=== PATIENT | female | born 1965 | race Caucasian/White ===

== ENCOUNTER 2019-10-22 08:56 | Observation (INO) ==
[2019-10-22] MEDS ORDERED: ONDANSETRON 4 MG/2 ML VIAL IV PRN (13:36)
[2019-10-22] MEDS ORDERED: ACETAMINOPHEN 325 MG TABLET PO PRN (13:36)
[2019-10-22] MEDS ORDERED: guaiFENesin 200 MG/10 ML UDCUP PO PRN (13:39)
[2019-10-22] MEDS ORDERED: ALBUTEROL/IPRATROPIUM 3 ML NEB RESP TX PRN (13:39)
[2019-10-22] MEDS ORDERED: IBUPROFEN 800 MG TABLET PO PRN (13:40)
[2019-10-22] MEDS: ALBUTEROL/IPRATROPIUM 3 ML NEB RESP TX SCH ×2 (14:47→19:16)
[2019-10-22] MEDS ORDERED: hydrALAZINE 20 MG/1 ML VIAL IV PRN (14:52)
[2019-10-22 15:13] LABS: Basophils # 0.1 10*3/uL (0.0-0.2); Basophils % 0.6 % (0.0-0.8); Eosinophils # 0.7 10*3/uL (0.0-0.87); Eosinophils % 8.3 % (0.00-10.9); Hematocrit 41.2 VOL% (35.7-47.0); Hemoglobin 13.4 GM/DL (12.0-16.0); Immature Granulocytes % 0.4 %; Immature Granulocytes Absolute 0.03 #; Mean Corpuscular HGB Conc 32.5 GM/DL (32-36); Mean Corpuscular Volume 91.8 FL (87-102); Mean Platelet Volume 11.4 FL (9.6-12.0); Monocytes % 6.4 % (1.7-12.7); Neutrophils % 59.3 % (38.7-73.9); Platelet Count 276 T/CUMM (130-400); Red Blood Count 4.49 MC/CUMM (3.8-5.5); Red Cell Distribution Width 12.1 % (9.3-17.3)
[2019-10-22 15:36] LABS: Albumin 3.4 G/DL (3.4-5.0); Bilirubin,Total 0.6 MG/DL (0.2-1.0); Calcium 8.4 MG/DL (8.5-10.1); Osmolality,Calculated 277.5 MOS/KG (273-304)
[2019-10-22] MEDS: methylPREDNISolone SOD SUC 40 MG/1 ML VIAL IV SCH (16:11)
[2019-10-22] MEDS: PIPERACILLIN/TAZOBACTAM 3,375 MG in SODIUM CHLORIDE 0.9% 100 ML IV SCH (18:14)
[2019-10-22] MEDS: SODIUM CHLORIDE 0.9% 1,000 ML IV SCH (18:14)
[2019-10-22] MEDS: ENOXAPARIN 40 MG/0.4 ML SYRINGE SUBCUT SCH (20:49)
[2019-10-22] MEDS: DOCUSATE SODIUM 100 MG CAPSULE PO SCH (20:51)
[2019-10-22 21:43] LABS: Amorphous Crystals,Urine Occasional /HPF (Few); Apearance,Urine CLEAR (Clear); Bilirubin,Urine Negative (Negative); Blood, Urine Negative (Negative); Glucose,Urine (UA) 150 mg/dL (Negative); Ketones,Urine Negative (Negative); Mucus,Urine Occasional /LPF (Occasional); Nitrite,Urine Negative (Negative); Protein,Urine Negative; RBC,Urine 1 /HPF (0-4); Squamous Epithelial Cell,Urine Occasional /HPF (0-10); Urine Color Yellow (Yellow); Urine Specific Gravity 1.018 (1.001-1.035); Urine Urobilinogen < 2.0 EU/DL (0.2-1.0); WBC,Urine <1 /HPF (0-6)
[2019-10-23] MEDS: ALBUTEROL/IPRATROPIUM 3 ML NEB RESP TX SCH ×7 (00:09→23:32)
[2019-10-23] MEDS: methylPREDNISolone SOD SUC 40 MG/1 ML VIAL IV SCH ×3 (01:26→16:29)
[2019-10-23] MEDS: PIPERACILLIN/TAZOBACTAM 3,375 MG in SODIUM CHLORIDE 0.9% 100 ML IV SCH ×3 (01:28→16:33)
[2019-10-23] MEDS: SODIUM CHLORIDE 0.9% 1,000 ML IV SCH (04:56)
[2019-10-23] MEDS: DOCUSATE SODIUM 100 MG CAPSULE PO SCH ×2 (08:47→20:16)
[2019-10-23] MEDS: FLUoxetine 20 MG CAPSULE PO SCH (08:47)
[2019-10-23] MEDS: MONTELUKAST 10 MG TABLET PO SCH (08:47)
[2019-10-23] MEDS: PANTOPRAZOLE 40 MG TABLET PO SCH (08:48)
[2019-10-23 09:33] LABS: Immunoglobulin A 193 MG/DL (70-400); Immunoglobulin G 826 MG/DL (700-1600); Immunoglobulin M 122 MG/DL (40-230)
[2019-10-23] MEDS ORDERED: traZODone 50 MG TABLET PO PRN (12:46)
[2019-10-23] MEDS: ENOXAPARIN 40 MG/0.4 ML SYRINGE SUBCUT SCH (20:16)
[2019-10-24] MEDS: PIPERACILLIN/TAZOBACTAM 3,375 MG in SODIUM CHLORIDE 0.9% 100 ML IV SCH ×2 (00:45→09:08)
[2019-10-24] MEDS: methylPREDNISolone SOD SUC 40 MG/1 ML VIAL IV SCH ×2 (00:45→08:57)
[2019-10-24] MEDS: ALBUTEROL/IPRATROPIUM 3 ML NEB RESP TX SCH ×2 (03:58→07:21)
[2019-10-24] MEDS: PANTOPRAZOLE 40 MG TABLET PO SCH (08:57)
[2019-10-24] MEDS: MONTELUKAST 10 MG TABLET PO SCH (08:57)
[2019-10-24] MEDS: DOCUSATE SODIUM 100 MG CAPSULE PO SCH (08:57)
[2019-10-24] MEDS: FLUoxetine 20 MG CAPSULE PO SCH (08:57)
[2019-10-24 11:31] VITALS: BP 128/67
== END 2019-10-24 13:18 | disposition home or self-care (01) ==
LOC: N.2W
PROVIDERS: ADMIT Family Medicine; ATTEND Family Medicine